=== PATIENT | male | born 1955 | race Caucasian/White ===

== ENCOUNTER 2017-10-18 13:14 | Emergency (ER) | payer BC ==
[~2017-10-18] VITALS: Ht 177.8 cm; Wt 101.6 kg
[~2017-10-18 13:14] MED LIST: ASPIRIN BUFFER325 MG PO; AUGMENTIN875 MG PO; Ascorbic Acid,Ester- PO; Bactrim,Septra DS 80 PO; CLONAZEPAM1 MG PO; CRESTOR20 MG PO; Feosol PO; GARLIC500 M1 PO; Garlic PO; KlonoPIN PO; LUNESTA3 MG PO; Omega III EPA + DHA PO; Paxil PO; THERAGRAN1 TABLET PO; VIAGRA100 MG PO; VIIBRYD20 MG PO; VITAMIN C1000 MG PO; Vicodin,Lortab 5/500 PO; ZESTORETIC 20-1 EAC1 PO
[2017-10-18 16:23] LABS: HEMATOCRIT 44.4 % (38.0-50.0); HEMOGLOBIN 15.2 G/DL (12.5-16.6); MCH 30.6 PG (29.0-34.0); MCHC 34.2 G/DL (30.0-36.0); MCV 89.5 FL (86-99); PLATELET COUNT 216 K/uL (156-360); RBC DIS.WIDTH-CV 12.7 % (11.8-14.6); RBC DIS.WIDTH-SD 41.7 % (39-53); RED BLOOD COUNT 4.96 M/uL (4.00-5.50); WHITE BLOOD COUNT 5.4 K/uL (4.1-10.2)
[2017-10-18 16:35] LABS: ALBUMIN 4.5 g/dL (3.2-4.8)
[2017-10-18 16:36] LABS: CHLORIDE 105 mEq/L (99-109); POTASSIUM 4.1 mEq/L (3.7-5.4); SODIUM 139 mEq/L (136-147)
[2017-10-18 16:38] LABS: GLUCOSE 96 mg/dL (70-99); TOTAL PROTEIN 7.6 g/dL (6.4-8.3)
[2017-10-18 16:40] LABS: TOTAL BILIRUBIN 0.2 mg/dL (0.0-1.0)
[2017-10-18 16:41] LABS: ALKALINE PHOSPHATASE 33 IU/L (3-129)
[2017-10-18 16:42] LABS: GFR ESTIMATE (CALCULATED) > 59 mL/min/ (58.99-99999)
[2017-10-18 16:43] LABS: AST (GOT) 23 IU/L (2-34); UREA NITROGEN (BUN) 15 mg/dL (9-23)
[2017-10-18 16:44] LABS: ALT (GPT) 41 IU/L (3-49)
[2017-10-18 18:33] LABS: APPEARANCE SL.HAZY ((CLEAR)); BILIRUBIN NEGATIVE; BLOOD NEGATIVE; COLOR YELLOW ((YELLOW)); GLUCOSE (STRIP) NEGATIVE; KETONES 5; LEUKOCYTES NEGATIVE; NITRITE NEGATIVE; PROTEIN (STRIP) 30; SPECIFIC GRAVITY 1.029 (1.000-1.030); UROBILINOGEN 0.2 MG/DL (0.2-1.0)
[2017-10-18 19:03] LABS: BACTERIA 1+ /HPF; EPITHELIAL CELLS 1+ /HPF; MUCUS NONE SEEN /LPF; RED BLOOD CELLS 0-5 /HPF (0-5); UCUL ADDED? NO; WHITE BLOOD CELLS 0-5 /HPF (0-5)
[2017-10-18 20:35] LABS: C DIFF TOXIN NEGATIVE (NEGATIVE)
[2017-10-18 21:27] VITALS: BP 156/77
== END 2017-10-18 21:27 | disposition home or self-care (01) ==
LOC: EME 13:14
PROVIDERS: Physician Assistant Medical
DX: R19.7 Diarrhea, unspecified (principal); R11.0 Nausea; F32.9 Major depressive disorder, single episode, unspecified; I10 Essential (primary) hypertension; F41.9 Anxiety disorder, unspecified; Z87.891 Personal history of nicotine dependence
CPT/HCPCS: 80053; 81003; 85027; 87086; 87177; 87493; 87506; 99281; 99284; J7040